=== PATIENT | female | born 1985 | race African-American/Black ===

== ENCOUNTER 2019-04-30 00:21 | Emergency (ER) | payer SELFPAY ==
[~2019-04-30] VITALS: Ht 218.4 cm; Wt 111.1 kg
[2019-04-30 03:39] LABS: Basophils # (auto) 0 uL; Eosinophils # (auto) 0.1 uL; Monocytes # (auto) 0.4 uL
[2019-04-30 03:44] LABS: Monocytes % (auto) 9.5 % (0.0-12.0); Red Blood Cells 4.83 10^6/uL (4.0-5.20)
[2019-04-30 03:45] LABS: Basophils % (auto) 1.1 % (0.0-2.0); Eosinophils % (auto) 1.8 % (0.0-7.0); Hematocrit 39.6 % (36.0-46.0); Hemoglobin 12.9 g/dL (12.2-16.2); Lymphocytes # (auto) 2.2 uL; Lymphocytes % (auto) 46.7 % (10.0-50.0); Mean Corpuscular Hemoglobin 26.7 pg (28.0-32.0); Mean Corpuscular Hgb Conc. 32.6 g/dL (32.0-36.0); Neutrophils # (auto) 1.9 uL; Neutrophils % (auto) 40.9 % (37.0-80.0); Platelet Count (auto) 111 10^3/uL (140-450); Red Cell Distribution Width 16.5 % (11.8-14.3); White Blood Cell 4.6 10^3/uL (4.4-10.8)
[2019-04-30 03:55] LABS: Alanine Aminotransferase 24 U/L (13-56); Albumin 3.6 g/dL (3.4-5.0); Anion Gap 7 (5-15); Aspartate Aminotransferase 22 U/L (15-37); Blood Alcohol < 3.0 mg/dL (0-5); Blood Urea Nitrogen 9 mg/dL (7-18); Calcium 9.4 mg/dL (8.5-10.1); Carbon Dioxide 25 mmol/L (21-32); Chloride 107 mmol/L (98-107); GFR African American 150 mL/min; GFR Non-African American 124 mL/min; Glucose 106 mg/dL (74-106); Sodium 139 mmol/L (136-145)
[2019-04-30 03:57] LABS: Salicylate < 1.7 mg/dL (2.8-20.0)
[2019-04-30 03:58] LABS: Alkaline Phosphatase 39 U/L (45-117); Bilirubin, Total 0.5 mg/dL (0.2-1.0); Total Protein 7.7 g/dL (6.4-8.2)
[2019-04-30 04:07] LABS: Acetaminophen < 2.0 ug/mL (10-30)
[2019-04-30 04:22] LABS: Potassium 2.9 mmol/L (3.5-5.1)
[2019-04-30] MEDS ORDERED: POTASSIUM CHL 20MEQ/100ML 100 ML IV ONE (05:15)
[2019-04-30] MEDS ORDERED: POTASSIUM EFFERVESENT TAB 25 MEQ PO ONE (05:15)
[2019-04-30 08:59] LABS: Urine Bacteria NONE SEEN /hpf (None Seen); Urine Blood Negative /uL (Negative); Urine Mucus FEW (None Seen); Urine Specific Gravity 1.021 (1.001-1.035); Urine WBC <1 /hpf (0 - 5)
[2019-04-30 09:10] LABS: Alcohol, Urine < 3.0 mg/dL (0-5); Amphetamine Screen, Urine NEGATIVE (NEGATIVE); Barbiturate Scree,Urine NEGATIVE (NEGATIVE); Benzodiazephine Screen, Urine NEGATIVE (NEGATIVE); Cannabinoid Screen, Urine NEGATIVE (NEGATIVE); Cocaine Screen, Urine NEGATIVE (NEGATIVE); Opiate Scree,Urine NEGATIVE (NEGATIVE); Phencyclidine Screen, Urine NEGATIVE (NEGATIVE)
[2019-04-30 13:00] VITALS: BP 122/74
== END 2019-04-30 14:13 | disposition home or self-care (01) ==
LOC: EDBD 00:21 → ER 00:25
DX: N85.2 Hypertrophy of uterus (principal); E87.6 Hypokalemia; F31.9 Bipolar disorder, unspecified; D21.9 Benign neoplasm of connective and other soft tissue, unspecified; D69.6 Thrombocytopenia, unspecified; Z59.0 Homelessness
CPT/HCPCS: 36415; 76856; 80053; 80307; 80320; 80329; 81001; 81025; 84702; 85025; 96365; 96366; 99284; J3480; J7030

== ENCOUNTER 2019-05-01 04:24 | Emergency (ER) | payer SELFPAY ==
[~2019-05-01] VITALS: Ht 218.4 cm; Wt 117.9 kg
[2019-05-01 08:35] VITALS: BP 120/71
[2019-05-01 09:23] LABS: Urine Bacteria NONE SEEN /hpf (None Seen); Urine Blood Negative /uL (Negative); Urine Specific Gravity 1.001 (1.001-1.035); Urine WBC <1 /hpf (0 - 5)
== END 2019-05-01 10:06 | disposition home or self-care (01) ==
LOC: EDBD 04:24 → ER 04:24
DX: E86.0 Dehydration (principal); F41.9 Anxiety disorder, unspecified; F31.9 Bipolar disorder, unspecified
CPT/HCPCS: 81001